=== PATIENT | female | born 1950 | race Caucasian/White ===

== ENCOUNTER 2021-10-14 17:11 | Outpatient (REF) | payer OTHER, SELFPAY ==
--- NOTE | ~2021-10-14 | CT_ITS ---
EXAMINATION: CT CHEST WITHOUT CONTRAST CLINICAL INFORMATION: Lung nodule. COMPARISON: Previous chest CT scans, most recent 05/14/2021 TECHNIQUE: Multidetector volumetric CT imaging of the chest was done. Axial MIP volume rendering provided. Sagittal and coronal reformatted images were obtained. This CT examination was performed using dose optimization techniques as appropriate, variously including the following: *Automated exposure control *Adjustment of mA and/or kV according to patient size (this includes techniques or standardized protocols for targeted exams where dose is matched to indication/reason for exam; i.e. extremities or head) *Use of iterative reconstruction technique DLP: 158 mGy-cm FINDINGS: LUNGS: There are scattered bilateral heterogeneous or semisolid nodular opacities seen in both lungs, predominantly with upper lung distribution. This does not appear appreciably changed from most recent exam May 2021 exam. Largest areas measure 1 cm in the superior segment of the right lower lobe axial image 157 and 164 series 7. No evidence of emphysema or bronchiectasis is seen. No endobronchial or endotracheal lesion is seen. There is a 3 mm calcified right lower lobe nodule axial image 198 series 7 that is stable. MEDIASTINUM: The visualized thyroid gland is normal. There are small mediastinal lymph nodes that are stable. No enlarged lymph nodes are seen. The heart does not appear enlarged. There is minimal coronary artery calcification. There is no pericardial effusion. The thoracic aorta is slightly tortuous but normal in caliber. There is a small esophageal hernia. PLEURA: There is no pleural effusion. No pleural mass or thickening. AXILLA: There is an asymmetric density in the left medial lower breast that measures 8 x 12 mm axial image 28 series 3 that is new. There are small bilateral axillary lymph nodes. No enlarged axillary lymph nodes are seen. UPPER ABDOMEN: Unremarkable. OSSEOUS STRUCTURES: There is a mid thoracic spine vertebral body hemangioma that is stable. There are mild degenerative changes of the spine. CT/CT chest wo con IMPRESSION: Stable bilateral heterogeneous or semisolid nodular opacities in the upper lungs from previous exam May 2021. Small mediastinal lymph nodes also stable. Mild coronary artery calcification. Small esophageal hernia. New 8 x 12 mm density in the left medial lower breast. Correlation with physical exam and mammogram recommended. Fleischner guidelines were followed.
== END 2021-10-14 17:12 | disposition home or self-care (01) ==
LOC: HO.CT 17:11
PROVIDERS: Visit Provider Internal Medicine Pulmonary Disease
DX: R91.8 Other nonspecific abnormal finding of lung field (principal)
CPT/HCPCS: 71250

== ENCOUNTER 2023-03-15 09:29 | Day surgery (SDC) | payer OTHER, SELFPAY ==
--- NOTE | 2023-03-14 10:07 | P.CONAN_ITS ---
Documented by User: Beth Fam NP 03/14/23 10:08 HPI - Anesthesia Eval Consult details Narrative: 73yo F for Colonoscopy [facility] Past Medical History Medical History (Updated 03/14/23 @ 09:32 by Niecy Sandoval RN) Asthma Diverticulitis GERD (gastroesophageal reflux disease) History of esophageal stricture HTN (hypertension) Sleep apnea Surgical History Surgical History (Updated 03/15/23 @ 09:52 by Ellen Hernandez) H/O colonoscopy H/O dilation and curettage H/O endoscopy History of total abdominal hysterectomy Social History Social History Patient Tobacco Use Status: Never used Tobacco Use of substances other than those prescribed or required for medical reasons: No Are you DNR?: No Advance Directives: No Advance Directives Information Provided: Yes Meds Allergies Allergy/AdvReac Type Severity Reaction Status Date / Time Iodinated Contrast Media Allergy Severe Swelling Verified 03/15/23 09:53 [IV Contrast Dye] Home Medications Medication Instructions Recorded Confirmed Last Taken Type Centrum Silver 03/14/23 Unknown History albuterol sulfate 90 mcg/actuation 1 inh inhalation Q4-6H PRN Wheezing 03/14/23 03/14/23 Unknown History breath activated powder inhaler,sensor (Proair Digihaler) atorvastatin 10 mg tablet 10 mg PO DAILY 03/14/23 03/14/23 Unknown History biotin 300 mcg tablet 300 mcg PO DAILY 03/14/23 03/14/23 Unknown History fluticasone 100 mcg-salmeterol 50 inhalation 03/14/23 03/14/23 Unknown History mcg/dose blistr powdr for inhalation (Advair Diskus) hydrochlorothiazide 25 mg tablet 25 mg PO DAILY 03/14/23 03/14/23 Unknown History olmesartan 20 mg tablet 20 mg PO DAILY 03/14/23 03/15/23 03/15/23 08:00 History omeprazole 20 mg capsule,delayed 20 mg PO 3XW 03/14/23 03/14/23 Unknown History release Exam Exam Date and Time: March 14, 2023 1007 Assessment and Plan Assessment Anesthesia Assessment: Chart Reviewed Documented by User: Analy Meehan MD 03/15/23 10:48 [facility] Past Medical History Medical History (Updated 03/14/23 @ 09:32 by Niecy Sandoval RN) Asthma Diverticulitis GERD (gastroesophageal reflux disease) History of esophageal stricture HTN (hypertension) Sleep apnea Family History Family history of problems with anesthesia: No Surgical History Surgical History (Updated 03/15/23 @ 09:52 by Ellen Hernandez) H/O colonoscopy H/O dilation and curettage H/O endoscopy History of total abdominal hysterectomy History of Problems with Anesthesia: No Social History Social History Patient Tobacco Use Status: Never used Tobacco Use of substances other than those prescribed or required for medical reasons: No Are you DNR?: No Advance Directives: No Advance Directives Information Provided: Yes Meds Allergies Allergy/AdvReac Type Severity Reaction Status Date / Time Iodinated Contrast Media Allergy Severe Swelling Verified 03/15/23 09:53 [IV Contrast Dye] Home Medications Medication Instructions Recorded Confirmed Last Taken Type Centrum Silver 03/14/23 Unknown History albuterol sulfate 90 mcg/actuation 1 inh inhalation Q4-6H PRN Wheezing 03/14/23 03/14/23 Unknown History breath activated powder inhaler,sensor (Proair Digihaler) atorvastatin 10 mg tablet 10 mg PO DAILY 03/14/23 03/14/23 Unknown History biotin 300 mcg tablet 300 mcg PO DAILY 03/14/23 03/14/23 Unknown History fluticasone 100 mcg-salmeterol 50 inhalation 03/14/23 03/14/23 Unknown History mcg/dose blistr powdr for inhalation (Advair Diskus) hydrochlorothiazide 25 mg tablet 25 mg PO DAILY 03/14/23 03/14/23 Unknown History olmesartan 20 mg tablet 20 mg PO DAILY 03/14/23 03/15/23 03/15/23 08:00 History omeprazole 20 mg capsule,delayed 20 mg PO 3XW 03/14/23 03/14/23 Unknown History release Exam Airway Mallampati Class: II TM Dist: >3cm Neck ROM: Full Assessment and Plan Assessment Anesthesia Assessment: Anesthesia Plan Discussed Final Anesthetic Review Family History of Problems with Anesthesia: No History of Problems with Anesthesia: No NPO: Yes ASA Class: II Final Preanesthetic Review: No Changes in Pt Med Stat, Meds/Allgs Chart Reviewed, Consent Obtained/Reviewed and Anes Risks/Benef Reviewed Patient Risk: Low Procedure Risk: Low Anesthetic Plan Anesthetic Plan: MAC: Disposition: Standard PACU
[2023-03-15 09:56] VITALS: BMI 33.1
[2023-03-15 10:13] VITALS: BP 156/59; PULSE 78; RESP 16; TEMP 37; O2SAT 98
[2023-03-15] MEDS: Lactated Ringers 1,000 ML 100 ML IVCONT (10:27)
[2023-03-15 11:35] VITALS: BP 119/62; PULSE 78; RESP 15; TEMP 36.7; O2SAT 97
--- NOTE | 2023-03-15 11:37 | P.BOP_ITS ---
Brief Operative Note Date of Service: 03/15/23 Pre-op diagnosis: Screening Post-op diagnosis: other (Colon polyp) Procedure: Colonoscopy to the cecum with hot snare polypectomy x 1 Surgeon: Bi Valle Anesthesia: MAC Was an Distance Education Director used for this Procedure?: No Estimated blood loss (mL): 0 Pathology: other (A. Transverse colon polyp) Condition: stable Disposition: PACU
[2023-03-15 11:50] VITALS: BP 143/75; PULSE 69; RESP 15; TEMP 36.4; O2SAT 98
--- NOTE | 2023-03-15 22:14 | OP_ITS ---
DATE OF SERVICE: 03/15/2023 SURGEON: Bi Valle MD INDICATIONS: The patient presents for evaluation of colorectal cancer screening and personal history of tubular adenomas of the colon. Full consent was obtained from her for this, including risks of bleeding and perforation. PREOPERATIVE DIAGNOSIS: POSTOPERATIVE DIAGNOSIS: PROCEDURE PERFORMED: Colonoscopy to the cecum with hot snare polypectomy. ESTIMATED BLOOD LOSS: COMPLICATIONS: ANESTHESIA: Monitored anesthesia care. ASSISTANTS: SPECIMENS: PREOPERATIVE DIAGNOSES: Colorectal cancer screening and personal history of tubular adenoma of the colon POSTOPERATIVE DIAGNOSES: Colorectal cancer screening and personal history of tubular adenoma of the colon, colon polyp, diverticulosis, and internal hemorrhoids. DESCRIPTION OF PROCEDURE: The patient was placed in the left lateral decubitus position. The digital rectal exam revealed no abnormalities. The Olympus video pediatric colonoscope was entered into the rectum and advanced easily to the cecum. Once in the cecum, I did identify a normal-appearing cecal pouch with appendiceal orifice and a normal-appearing ileocecal valve. The entire cecum and ileocecal valve appeared normal. The scope was then slowly withdrawn assessing all mucosal surface carefully. Preparation was for the most part excellent after a lot of irrigation and suctioning. The only polyp I visualized was in the transverse colon. This was approximately 8 mm and removed by hot snare polypectomy. This was recovered by suction. The polypectomy site appeared clean, without any sign of residual polyp and no bleeding. I did not visualize any other polyps, colitis, or angiodysplasias. There was mild amount of sigmoid diverticulosis. In the rectum, the scope was retroflexed, visualizing internal hemorrhoids, but no other pathology. The rectal mucosa appeared normal. The scope was straightened and withdrawn from the patient. She tolerated the procedure well and was returned to the recovery area in stable condition. IMPRESSION: 1. Colon polyp. 2. Diverticulosis. 3. Internal hemorrhoids. PLAN: The results of the pathology will be checked. I would recommend a repeat colonoscopy in 5 years. She was advised not to use any aspirin or NSAIDs for 1 week. MD MARIBETH Ying/CYNDI / [id number] [place]
== END 2023-03-15 12:40 | disposition home or self-care (01) ==
PROVIDERS: PCP Internal Medicine; Visit Provider Internal Medicine
PROC: 0DJD8ZZ Inspection of Lower Intestinal Tract, Via Natural or Artificial Opening Endoscopic (ICD-10-PCS; CPT 45378; principal; 2023-03-15 10:40)
DX: Z12.11 Encounter for screening for malignant neoplasm of colon (principal); D12.3 Benign neoplasm of transverse colon; K57.30 Diverticulosis of large intestine without perforation or abscess without bleeding; K64.8 Other hemorrhoids; Z86.010 Personal history of colon polyps; K21.9 Gastro-esophageal reflux disease without esophagitis; I10 Essential (primary) hypertension; J45.909 Unspecified asthma, uncomplicated
CPT/HCPCS: 45385; 88305